=== PATIENT | female | born 1985 | race Two or more races ===

== ENCOUNTER 2019-04-22 02:58 | Emergency (ER) | payer OTHER ==
[~2019-04-22] VITALS: Ht 164.3 cm; Wt 52.2 kg
--- NOTE | 2019-04-22 03:00 | NUR ---
TO BED 9 AMBULATORY C/O "I SLEPT WRONG LAST NIGHT & NOW IM HAVING MID BACK SPASM". URINARY PAIN, BURNING, FREQUENCY UPON URINATION X2 WEEKS. PT AAOX4 NO ACUTE DISTRESS NOTED, RESP EVEN AND UNLABORED. PENDING ER MD ZAPATA.
--- NOTE | 2019-04-22 03:20 | NUR ---
URINE SAMPLE COLLECTED AND SENT TO LAB.
[2019-04-22] MEDS ORDERED: IBUPROFEN 400 MG TABLET ONE (03:29)
[2019-04-22] MEDS ORDERED: IBUPROFEN 400 MG TABLET PO ONE (03:30)
[2019-04-22] MEDS ORDERED: NITROGLYCERIN 0.4 MG/TAB BOTTLE SL ONE (03:30)
[2019-04-22 03:37] LABS: APPEARANCE,URINE CLEAR (CLEAR); BILIRUBIN,URINE NEGATIVE (NEGATIVE); BLOOD, URINE NEGATIVE Ery/uL (NEGATIVE); COLOR,URINE YELLOW (YELLOW); KETONES,URINE NEGATIVE (NEGATIVE); LEUKOCYTE ESTERASE ,URINE NEGATIVE (NEGATIVE); NITRITE, URINE NEGATIVE (NEGATIVE); PROTEIN,URINE NEGATIVE (NEGATIVE); UGLUCOSE NEGATIVE (NEGATIVE); UROBILINOGEN,URINE 0.2 EU/dL (0.2)
--- NOTE | 2019-04-22 03:42 | NUR ---
AT BEDSIDE FOR RE-EVALUATION.
--- NOTE | 2019-04-22 03:49 | NUR ---
Prescriptions given and explained to the patient. Patient understands not to operate behind any machinery when taking prescriptions.
--- NOTE | 2019-04-22 03:49 | NUR ---
Patient discharged to home in stable condition. Written and verbal after care instructions given. Patient verbalizes understanding of instruction.
[2019-04-22 03:50] VITALS: BP 119/73
== END 2019-04-22 03:51 | disposition home or self-care (01) ==
LOC: ER 02:58
DX: M54.6 Pain in thoracic spine (principal); R25.2 Cramp and spasm; R35.0 Frequency of micturition
CPT/HCPCS: 81000-TC; 84703-TC